=== PATIENT | female | born 1955 | race Caucasian/White ===

== ENCOUNTER 2020-01-06 06:10 | Emergency (ER) | payer OTHER ==
--- NOTE | 2020-01-06 06:11 | PDOC ---
History of Present Illness - General Chief Complaint: Injury Stated Complaint: walking and fell Time Seen by Provider: 01/06/20 06:11 - History of Present Illness Initial Comments: 01/06/20 06:57 This otherwise healthy 64-year-old woman presents with history of tripping and falling on pavement just prior to presentation. Patient struck midface and left hand against sidewalk, sustaining small laceration and abrasions of face and laceration of left hand. No history of loss of consciousness. The patient denies headache/neck pain, shortness of breath, chest pain, abdominal pain. She is able to ambulate without difficulty. Patient is up-to-date with tetanus immunization Past History - Medical History Allergies/Adverse Reactions: Allergies Allergy/AdvReac Type Severity Reaction Status Date / Time No Known Allergies Allergy Verified 01/06/20 06:11 Home Medications: Ambulatory Orders Ascorbic Acid [Vitamin C -] 500 mg PO DAILY 07/23/15 Cholecalciferol (Vitamin D3) [Vitamin D3] 2,000 unit PO DAILY 07/23/15 Echinacea [Echinacea Herb] 380 mg PO DAILY 01/06/20 Anemia: No Asthma: No Cancer: No Cardiac Disorders: No CVA: No COPD: No CHF: No Dementia: No Diabetes: No GI Disorders: No Disorders: No HTN: No Hypercholesterolemia: No Liver Disease: No Seizures: No Thyroid Disease: No - Surgical History Abdominal Surgery: No Appendectomy: No Cardiac Surgery: No Cholecystectomy: No Lung Surgery: No Neurologic Surgery: No Orthopedic Surgery: Yes (RIGHT KNEE ARTHROSCOPY-2014) - Immunization History Td Vaccination: Yes Immunization Up to Date: Yes - Psycho-Social/Smoking History Smoking History: Never smoked Have you smoked in the past 12 months: No If you are a former smoker, when did you quit?: 1987 *Physical Exam - Physical Exam GENERAL: Adult female, alert and oriented x3, no acute distress HEAD: Normal with no signs of trauma. EYES: PERRLA, EOMI, sclera anicteric, conjunctiva clear. ENT: Ears normal, nares patent, oropharynx clear without exudates. Moist mucous membranes. NECK: Normal range of motion, supple without lymphadenopathy, JVD, or masses. LUNGS: Breath sounds equal, clear to auscultation bilaterally. No wheezes, and no crackles. HEART:Regular rate and rhythm, normal S1 and S2 without murmur, rub or gallop. ABDOMEN:.normal bowel sounds No guarding,tenderness or rebound.No masses No d istention. EXTREMITIES: Normal range of motion, no edema. No clubbing or cyanosis. No erythema, or tenderness. NEUROLOGICAL: Cranial nerves II through XII grossly intact. Normal speech. No focal neurological deficits. MUSCULOSKELETAL: Back non-tender to palpation, no CVA tenderness SKIN: Nonbleeding horizontal, linear, 0.5 cm laceration mid nasal bridge; abrasions of central portion of the nose Nonbleeding, full-thickness, 1.5 cm laceration dorsal surface PIP joint left third finger Multiple small (1 to 3 mm) nonbleeding abrasions right and left hands Procedures - Laceration/Wound Repair Nose Wound Length: to 2.5 cm Wound's Depth, Shape: linear Irrigated w/ Saline: Yes Betadine Prep: No (Hibiclens/ethanol) Anesthesia: 1% Lidocaine Amount of Anesthetic (ccs): 1 Wound Repaired With: Sutures Suture Size/Type: 5:0 Number of Sutures: 1 Layer Closure: No Progress: Anterior aspect of nose prepped using Hibiclens/ethanol solution and sterilely draped. 1 mL of 1% lidocaine infiltrated into the nasal bridge laceration area for local anesthesia. Wound irrigated with 10 mL of sterile normal saline. Small (4 mm), linear full-thickness laceration present on nasal bridge. Edges of the laceration closely approximated and wound closed with 1 suture of 5-0 nylon. Bacitracin ointment applied to laceration and surrounding abrasion Left Anterior 3rd digit Wound Length: to 2.5 cm Wound Explored: clean Wound's Depth, Shape: irregular Irrigated w/ Saline: Yes Betadine Prep: No (Hibiclens/ethanol) Anesthesia: 1% Lidocaine Amount of Anesthetic (ccs): 2 Wound Repaired With: Sutures Suture Size/Type: 5:0 Number of Sutures: 5 Layer Closure: No Sterile Dressing Applied: Yes Progress: Area of left third digit, PIP joint dorsal surface laceration cleansed with Hibiclens/ethanol solution and sterilely draped. 2 mL of 1% lidocaine infiltrated into the wound for local anesthesia. Depth of wound inspected: No evidence of foreign body or joint capsule disruption seen. Wound irrigated with 20 mL of sterile normal saline. Edges of wound closely approximated and closed using 5 interrupted with sutures of 5-0 nylon. Bacitracin and sterile gauze dressing applied to wound. Patient tolerated procedure well Discharge - Discharge Information Problems reviewed: Yes Clinical Impression/Diagnosis: Multiple abrasions Laceration of left middle finger Qualifiers: Encounter type: initial encounter Damage to nail status: without damage Foreign body presence: without foreign body Qualified Code(s): S61.213A - Laceration without foreign body of left middle finger without damage to nail, initial encounter Laceration of nose Qualifiers: Encounter type: initial encounter Qualified Code(s): S01.21XA - Laceration without foreign body of nose, initial encounter Condition: Stable Disposition: HOME - Follow up/Referral Referrals: Gary Lara MD [Primary Care Provider] - - Patient Discharge Instructions Patient Printed Discharge Instructions: How to Care for a Laceration After Repair Additional Instructions: Keep left finger wound as dry as possible for 2 days/elevate hand After 2 days, can use Band-Aid during day/open at night on finger wound Bacitracin/Neosporin ointment daily to nasal laceration and abrasions Return to ER or see your doctor if wounds become swollen/red/more painful Have sutures removed on Sunday, January 11 - Post Discharge Activity
[2020-01-06 06:19] VITALS: BP 117/80; PULSE 93; TEMP 97.9; BMI 22.8
--- OUTSIDE RECORDS SUMMARY | 2020-01-06 06:34 | XMS ---
:1955 Author Organization [facility] Support Name Relationship Address Phone [facility] [place] [address] [place] [address] MINDY LOPEZ [address] [address] Re-disclosure Warning The records that you are about to access may contain information from federally- assisted alcohol or drug abuse programs. If such information is present, then the following federally mandated warning applies: This information has been disclosed to you from records protected by federal confidentiality rules (42 CFR part 2). The federal rules prohibit you from making any further disclosure of this information unless further disclosure is expressly permitted by the written consent of the person to whom it pertains or as otherwise permitted by 42 CFR part 2. A general authorization for the release of medical or other information is NOT sufficient for this purpose. The Federal rules restrict any use of the information to criminally investigate or prosecute any alcohol or drug abuse patient.The records that you are about to access may contain highly sensitive health information, the redisclosure of which is protected by Article 27-F of the [facility] Public Health law. If you continue you may haveaccess to information: Regarding HIV / AIDS; Provided by facilities licensed or operated by the [facility] Office of Mental Health; or Provided by the [facility] Office for People With Developmental Disabilities. If such information is present, then the following [facility] mandated warning applies: This information has been disclosed to you from confidential records which are protected by state law. State law prohibits you from making any further disclosure of this information without the specific written consent of the person to whom it pertains, or as otherwise permitted by law. Any unauthorized further disclosure in violation of state law may result in a fine or mcc sentence or both. A general authorization for the release of medical or other information is NOT sufficient authorization for further disclosure. Insurance Providers Payer name Policy type / Policy ID Covered Covered green party's Policy Plan Coverage type green party ID relationship to Antoine Information antoine [employer] [id number]
== END 2020-01-06 07:10 | disposition home or self-care (01) ==
LOC: FER 06:10
PROC: 09QKXZZ Repair Nasal Mucosa and Soft Tissue, External Approach (ICD-10-PCS; principal; 2020-01-06)
PROC: 0HQGXZZ Repair Left Hand Skin, External Approach (ICD-10-PCS; 2020-01-06)
DX: S61.213A Laceration without foreign body of left middle finger without damage to nail, initial encounter (principal); S01.21XA Laceration without foreign body of nose, initial encounter
CPT/HCPCS: 99282-25